=== PATIENT | female | born 1960 | race Caucasian/White ===

== ENCOUNTER → 2018-04-07 | Outpatient (CLI) | payer OTHER ==
--- NOTE | 2018-04-07 13:30 | XR ---
EXAMINATION TYPE: XR tibia fibula bilateral DATE OF EXAM: 04/07/2018 COMPARISON: NONE HISTORY: Fall, pain in knee contusion TECHNIQUE: 2 view right tibia and fibula FINDINGS: No acute fractures are evident. Joint spaces appear preserved. Soft tissues appear normal. IMPRESSION: 1. Normal 2 view right tibia and fibula. 2. Follow-up exams can be performed 7-10 days from acute trauma for continued pain.
--- NOTE | 2018-04-07 13:54 | XR ---
EXAMINATION TYPE: XR knee complete RT DATE OF EXAM: 04/07/2018 CLINICAL HISTORY: pain TECHNIQUE: Three views of the right knee are obtained. COMPARISON: None. FINDINGS: There is no acute fracture/dislocation. The tri-compartment joint spaces appear within no rmal limits. The overlying soft tissue appears unremarkable. IMPRESSION: There is no acute fracture or dislocation.ICD 10 NO FRACTURE, INITIAL EVALUATION
== END | disposition home or self-care (01) ==
LOC: RADXRMAIN 12:54
PROVIDERS: ATTEND Emergency Medicine
DX: S80.01XA Contusion of right knee, initial encounter (principal); S81.801A Unspecified open wound, right lower leg, initial encounter; S80.10XA Contusion of unspecified lower leg, initial encounter

== ENCOUNTER → 2018-05-06 | Outpatient (CLI) | payer OTHER ==
--- NOTE | 2018-05-06 19:09 | XR ---
EXAMINATION TYPE: XR tibia fibula LT DATE OF EXAM: 05/06/2018 COMPARISON: 04/07/2018 HISTORY: Contusion pain TECHNIQUE: 2 views FINDINGS: I see no fracture nor dislocation. Knee joint and ankle joint appear intact. Soft tissues a ppear normal. IMPRESSION: Normal left tibia and fibula exam. No change.
== END | disposition home or self-care (01) ==
LOC: RADXRMAIN 18:34
PROVIDERS: ATTEND Emergency Medicine
DX: S80.10XD Contusion of unspecified lower leg, subsequent encounter (principal)

== ENCOUNTER → 2025-01-17 | Outpatient (CLI) | payer OTHER ==
[~2025-01-17] MED LIST: REGADENOSON 0.4 MG/5 ML SYRINGE IV PRN
--- NOTE | 2025-01-17 13:38 | CA ---
Lexiscan Nuclear Stress Test Report Name: Juju Morse Exam Date: 01/17/2025 12:46 Exam Location: [facility] Stress Ht (in): 64 Wt (lb): 155 BSA: 1.76 Ordering Phys: Tam Cristobal MD Referring Phys: Tam Cristobal MD Technologist: Shekhar Corcoran Age: 65 Gender: F : 1960 Procedure CPT: Indications: R07.9 CHEST PAIN ICD-10 Codes: Patient History: Medications: Meds past 24 hrs: Pretest Chest Pain: STRESS TEST Lexiscan Protocol Exercise Duration (min:sec): 02:[address] Depressions (mm): Angina Score: Mae Score: Resting HR (bpm): 54 Peak HR (bpm): 84 Resting BP (mmHg): 140 / 78 Peak BP (mmHg): 143 / 61 MPHR: 156 Target HR: 133 % MPHR: 54 METS: 1.0 Total Dose: Peak Dose: Atropine: Double Product: 01339 BP Response: Stress Termination: INFUSION COMPLETE Stress Symptoms: NO SYMPTOMS Stress Summary: ECG ANALYSIS Resting ECG: Sinus rhythm. Left bundle branch block. No arrhythmias. Stress ECG: No ECG changes from baseline with Lexiscan infusion. CONCLUSIONS No ECG evidence of ischemia with Lexiscan infusion. Nuclear test results to follow. Dr. Thuy Mccall MD (Electronically Signed) Final Date: 17 January 2025 13:37
--- NOTE | 2025-01-17 16:51 | NM ---
EXAMINATION TYPE: NM stress lexiscan cardiolite DATE OF EXAM: 01/17/2025 COMPARISON: NONE CLINICAL INDICATION: Female, 65 years old with history of R07.9 Chest Pain; TECHNIQUE: After the intravenous administration of 10.2 mCi Tc 99m Sestamibi - Cardiolite resting SP ECT images acquired 45 minutes post injection. The patient received 0.4mg Lexiscan, 26.0 mCi Tc 99m Sestamibi - Stress images obtained [address] injection FINDINGS: Review of stress and rest SPECT images demonstrates fixed diminished perfusion along the septal wall which may be attenuation artifact versus old infarct. No suspicious reversibility is identified. [place] d analysis shows normal wall motion with an estimated left ventricular ejection fraction of 56 %. TI D is calculated at 0.88. IMPRESSION: Clinically correlate for either old infarct versus attenuation artifact involving the septal wall. Ot herwise, no suspicious reversibility is seen. [facility], , 01/17/2025 4:49 PM
== END | disposition home or self-care (01) ==
LOC: RADNMMAIN 08:58
PROVIDERS: ATTEND Internal Medicine Interventional Cardiology
DX: R07.9 Chest pain, unspecified (principal)
CPT/HCPCS: 93017; 78452; A9500; J2785

== ENCOUNTER → 2025-02-14 | Outpatient (CLI) | payer OTHER ==
--- NOTE | 2025-02-14 14:15 | CT ---
EXAMINATION TYPE: CT angio neck DATE OF EXAM: 02/14/2025 COMPARISON: None CLINICAL INDICATION: Female, 65 years old with history of M48.061 SPINAL STENOSIS, LUMBAR REGION M47. 816; PHH, ABNORMAL ULTRASOUND, RIGHT SIDED BLOCKAGE TECHNIQUE: CTA scan of the head and neck is performed with IV Contrast, patient injected with 65 ML mL of Isovue 370, axial images are obtained, coronal and sagittal reformatted images are reviewed. 3D reconstructed images are created on an independent workstation and reviewed. CT DLP: 284.[address] CTDI: mGy Automated exposure control for dose reduction was used. NASCET criteria was used in interpretation of this exam? FINDINGS: The brachiocephalic origins are widely patent and no significant stenosis. There is no significant stenosis of the common or internal carotid arteries within the neck. There is severe tortuosity in the right carotid bifurcation and proximal internal carotid artery but no signi ficant stenosis. There is no stenosis of the vertebral arteries IMPRESSION:. No significant abnormality seen. NASCET criteria was used in interpretation of this exam? [facility], , 02/14/2025 2:12 PM
== END | disposition home or self-care (01) ==
LOC: RADCTMAIN 12:59
PROVIDERS: ATTEND Internal Medicine Interventional Cardiology
DX: M48.061 Spinal stenosis, lumbar region without neurogenic claudication (principal)
CPT/HCPCS: 70498; Q9967

== ENCOUNTER → 2025-05-26 | Outpatient (CLI) | payer OTHER ==
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
== END ==
LOC: NEUROMAIN 07:38
PROVIDERS: ATTEND Psychiatry & Neurology Neurology
DX: R55 Syncope and collapse (principal)
CPT/HCPCS: 95819

== ENCOUNTER → 2025-05-29 | Outpatient (CLI) | payer OTHER ==
--- NOTE | 2025-05-30 07:52 | MR ---
EXAMINATION TYPE: MR brain wo/w con DATE OF EXAM: 05/29/2025 8:13 PM COMPARISON: None. CLINICAL INDICATION: Female, 65 years old with history of R55, D35.2; PHH, dizziness, falls, pituitar y adenoma. TECHNIQUE: Multi planar, multi sequence imaging was performed through the brain including: T1, T2, In version recovery, susceptibility weighted imaging and gradient echo imaging and Diffusion weighted im aging. The patient was then given intravenous contrast and multi planar, T1 fat-saturation images wer e obtained. IV Contrast: 6.5 mL Gadobutrol FINDINGS: Pituitary mass measuring 11 x 10 x 8 mm. The sarkar-white junctions, ventricular system, basal cisterns appear unremarkable. Diffusion-weighted imaging shows no evidence of restricted diffusion to sugges t acute/subacute infarct. Intracranial arterial flow voids are maintained. Midline structures show no abnormality. Scattered foci of high T2 signal intensity are seen within the periventricular white ma tter. The susceptibility weighted images do not reveal any evidence for micro-hemorrhage. After admin istration of gadolinium, no abnormal enhancement is seen. The bone marrow signal is within normal limits. Paranasal sinuses and mastoid air cells: No significant paranasal sinus disease. Visualized orbits: Orbital contents are intact. IMPRESSION: 1. No evidence of intracranial mass, acute/subacute infarct, or abnormal enhancement. 2. Nonspecific white matter changes, likely related to small vessel ischemic disease. 3. Pituitary macroadenoma 11 x 10 x 8 mm. [facility], , 05/30/2025 7:49 AM
== END | disposition home or self-care (01) ==
LOC: RADMRIMAIN 19:40
PROVIDERS: ATTEND Psychiatry & Neurology Neurology
DX: D35.2 Benign neoplasm of pituitary gland (principal); R90.82 White matter disease, unspecified
CPT/HCPCS: 70553; A9585